=== PATIENT | female | born 1955 | race Caucasian/White ===

== ENCOUNTER 2016-05-23 06:51 | Emergency (ER) | payer OTHER ==
[~2016-05-23] VITALS: Ht 162.6 cm; Wt 117.9 kg
--- NOTE | 2016-05-23 07:30 | ED GI/GU/ABDOMINAL COMPLAINT ---
History of Present Illness General Chief Complaint: Abdominal Pain/Flank Pain Stated Complaint: ABD PAIN /RECTAL BLEEDING Source: patient Exam Limitations: no limitations Vital Signs & Intake/Output Vital Signs & Intake/Output Vital Signs Date Time Temp Pulse Resp B/P Pulse O2 O2 Flow FiO2 Ox Delivery Rate 05/23 1041 98.0 80 18 113/87 98 Room Air 05/23 0705 96.9 91 16 145/89 96 Room Air Allergies Coded Allergies: morphine (VOMITING 05/23/16) Reconcile Medications No Known Home Medications Triage Note: PT STATES SHE HAD A BAD STOMACH ACHE LAST EVENING AND IT COMES IN WAVES. PT STATES SHE HAS DIARRHEA AND AT THE END OF IT SHE WAS HAVING BLOOD CLOTS THAT CAME OUT. PT STATES THE CRAMPING CONT. AND SHE IS STILL HAVING BLOOD CLOTS SINCE LAST NIGHT. Triage Nurses Notes Reviewed? yes ? N Is pt currently ? No HPI: Patient presents for evaluation of a diffuse abdominal pain, worst in the left lower quadrant, that began last night while at home. Patient states that since then she has had 5 bloody bowel movements and nausea but no vomiting. She states she has had prior episodes like this due to IBS. She denies associated fever, cold symptoms or other sources of bleeding. He states the pain is a sharp pain that typically crescendos prior to bowel movements and then it becomes a dull achy pain. The pain has been constant since onset but fluctuates in intensity. Nothing seems to make her feel better. Past History Travel History Traveled to [place] past 21 day No Medical History Any Pertinent Medical History? see below for history Neurological: RESTLESS LEGS Cardiovascular: hypertension Surgical History Surgical History: non-contributory Psychosocial History What is your primary language Cypriot Tobacco Use: Never used ETOH Use: denies use Illicit Drug Use: denies illicit drug use Family History Hx Contributory? No Review of Systems Review of Systems Constitutional: Reports: no symptoms. EENTM: Reports: no symptoms. Respiratory: Reports: no symptoms. Cardiovascular: Reports: no symptoms. GI: Reports: see HPI. Genitourinary: Reports: no symptoms. Musculoskeletal: Reports: no symptoms. Skin: Reports: no symptoms. Neurological/Psychological: Reports: no symptoms. Hematologic/Endocrine: Reports: no symptoms. Immunologic/Allergic: Reports: no symptoms. All Other Systems: Reviewed and Negative Physical Exam Physical Exam Gastrointestinal: SEE BELOW Core Measures ACS in differential dx? No Severe Sepsis Present: No Septic Shock Present: No Progress Differential Diagnosis: diverticulitis, ibs, ibd, HEMORRHOIDAL BLEEDING/OUTLET BLEED Plan of Care: Orders Procedure Date/time Status URINALYSIS 05/23 728 Complete LIPASE 05/23 728 Complete HUMAN BETA HCG SCREEN 05/23 728 Complete COMPREHENSIVE METABOLIC PANEL 05/23 728 Complete CBC WITHOUT DIFFERENTIAL 05/23 728 Complete Laboratory Tests 05/23/16 0743: Urine Color YEL, Urine Clarity HAZY H, Urine pH 6.0, Ur Specific [place] 1.025, Urine Protein NEG, Urine Ketones NEG, Urine Nitrite POS H, Urine Bilirubin NEG, Urine Urobilinogen 0.2, Ur Leukocyte Esterase MOD H, Ur Microscopic SEDIMENT EXAMINED, Urine RBC 1-3, Urine WBC > 75 H, Ur Epithelial Cells FEW, Urine Bacteria MANY H, Urine Hemoglobin TRACE-LYSED, Urine Glucose NEG 05/23/16 0742: Anion Gap 11, Estimated GFR 46 L, BUN/Creatinine Ratio 18.3, Glucose 120 H, Calcium 9.3, Total Bilirubin 0.6, AST 17, ALT 35, Alkaline Phosphatase 94, Total Protein 7.1, Albumin 3.7, Globulin 3.4, Albumin/Globulin Ratio 1.1, Lipase 43, Total Beta HCG NEGATIVE, CBC w Diff NO MAN DIFF REQ, RBC 5.03, MCV 79.4 L, MCH 25.9 L, RDW 14.7 H, MPV 7.5, Gran % 79.5 H, Lymphocytes % 13.8 L, Monocytes % 4.8, Eosinophils % 0.8, Basophils % 1.1, Absolute Granulocytes 10.3 H, Absolute Lymphocytes 1.8, Absolute Monocytes 0.6, Absolute Eosinophils 0.1, Absolute Basophils 0.1, PUBS MCHC 32.6 L Initial ED EKG: none Comments: 05/23/2016 12:35:53 PM I have updated On Her Test Results. She States She Has Had 3 More Bloody Bowel Movements Here in the Emergency Department Although Did Not Notify the Nursing Staff. Although she appears to have signs of urinary tract infection denies clinical signs and symptoms. I doubt this to be the cause of her pain. She also has a right adnexal cyst but this too I feel is an incidental finding. Given the persistent bloody bowel movements I have paged GI. 05/23/2016 12:45:57 PM patient's case discussed with Dr. Springer including the gastrointestinal findings on the patient's CAT scan. He feels that the patient is afebrile tolerating fluids and her symptoms are controlled but this can be managed as an outpatient. He feels colitis is most likely followed by perhaps internal hemorrhoidal bleeding. Departure Departure Disposition: HOME OR SELF CARE Condition: Stable Clinical Impression Primary Impression: Abdominal pain Qualifiers: Abdominal location: left lower quadrant Qualified Code: R10.32 - Left lower quadrant pain Secondary Impressions: Colitis Renal insufficiency UTI (urinary tract infection) Qualifiers: Urinary tract infection type: site unspecified Hematuria presence: without hematuria Qualified Code: N39.0 - Urinary tract infection, site not specified Referrals: MARIA LUZ ROBLEDO,DIEGO ROMAN (PCP/Family) Additional Instructions: Cipro and Flagyl as prescribed. Tramadol as needed for pain. Follow-up with Dr. Springer on Wednesday for reevaluation and preparation for colonoscopy. Return to the emergency department if any concerns or sudden worsening. Please notify your primary care doctor of this emergency department visit and treatment plan please note that your CAT scan showed a right ovarian cyst that should be reevaluated by your [facility] doctor, call your [facility] doctor this week for follow- up appointment. Please note that there might be incidental findings in your evaluation that are unrelated to the current emergency department visit. Please notify your primary care doctor about this emergency department visit in order to obtain and review all of the testing performed so that these incidental findings can be monitored as needed. If you had an x-ray performed, please understand that some fractures may not be seen on the initial set of x-rays. If your symptoms persist you might need a repeat set of x-rays to check for such a fracture. Thank you for choosing the [facility] Emergency Department for your care. It was a pleasure to serve you today. Manny Yadav M.D. [facility] If you had a laceration evaluated, please understand that foreign bodies such as glass or wood may not be visible to the naked eye or on plain x-rays. If the wound becomes red, swollen, increasingly more painful or if there is any drainage from the wound, please have it reevaluated by a physician for the possibility of a retained foreign body. Departure Forms: Customer Survey General Discharge Information Prescriptions: Current Visit Scripts Ciprofloxacin HCl (Cipro) 1 TAB PO BID #20 TAB Metronidazole (Flagyl) 1 TAB PO Q6 #40 TAB Tramadol HCl (Ultram) 1-2 TAB PO Q6P PRN PAIN #16 TAB
[2016-05-23 08:10] LABS: ABSOLUTE BASOPHIL COUNT 0.1 /CUMM (0.0-0.2); ABSOLUTE EOSINOPHIL COUNT 0.1 /CUMM (0.0-0.7); ABSOLUTE GRANULOCYTE CT 10.3 /CUMM (1.4-6.5); ABSOLUTE LYMPH COUNT 1.8 /CUMM (1.2-3.4); ABSOLUTE MONOCYTE COUNT 0.6 /CUMM (0.10-0.60); BASOPHIL % 1.1 % (0.0-2.0); EOSINOPHIL % 0.8 % (0-5); GRANULOCYTE % 79.5 % (42.2-75.2); HEMATOCRIT 39.9 % (37-47); MEAN CORPUSCULAR HGB 25.9 PG (27.0-31.0); MEAN CORPUSCULAR HGB CONC 32.6 G/DL (33.0-37.0); MEAN CORPUSCULAR VOLUME 79.4 FL (81.0-99.0); MEAN PLATELET VOLUME 7.5 FL (7.4-10.4); PLATELET COUNT 439 /CUMM (130-400); RBC DISTRIBUTION WIDTH 14.7 % (11.5-14.5); RED BLOOD CELL CT 5.03 /CUMM (4.20-5.40)
[2016-05-23] MEDS ORDERED: FLAGYL500 MG PO (12:58)
[2016-05-23] MEDS ORDERED: ULTRAM50 M1 PO (12:58)
[2016-05-23] MEDS ORDERED: CIPRO500 M1 PO (12:58)
[2016-05-23 13:05] VITALS: BP 144/72
== END 2016-05-23 13:06 ==
LOC: ERH 06:51
PROVIDERS: Emergency Medicine
DX: K52.9 Noninfective gastroenteritis and colitis, unspecified (principal); N28.9 Disorder of kidney and ureter, unspecified; N39.0 Urinary tract infection, site not specified
CPT/HCPCS: 81001